=== PATIENT | female | born 1995 ===

== ENCOUNTER 2017-06-12 13:52 | Emergency (ER) | payer OTHER ==
[2017-06-12 14:17] VITALS: BP 100/56
--- NOTE | 2017-06-12 14:37 | UC ---
FLU HPI - HPI Summary HPI Summary: 22 y/.o female with 4 days history of sinus pressure, headache, sore throat. POssible fever last night, tactile, patient states up to maybe 100, no chills, night sweats. + pain with swallowing, no ear pain. no PMH, no medications currently. no recent ABX - History of Current Complaint Hx Obtained From: Patient Hx Last Menstrual Period: 05/29/17 Onset/Duration: Gradual Onset, Lasting Days, Still Present Severity Currently: Moderate Severity Initially: Moderate <Abi Stone - Last Filed: 06/12/17 14:50> <Arlen Adair - Last Filed: 06/12/17 16:11> - History of Current Complaint Chief Complaint: UCRespiratory Stated Complaint: SINUS,SORE THROAT Time Seen by Provider: 06/12/17 14:36 - Allergy/Home Medications Allergies/Adverse Reactions: Allergies Allergy/AdvReac Type Severity Reaction Status Date / Time Sulfa Antibiotics Allergy Hives Verified 06/12/17 14:17 Home Medications: Home Medications NK [No Home Medications Reported] 06/12/17 [History Confirmed 06/12/17] PMH/Surg Hx/FS Hx/Imm Hx Previously Healthy: Yes - Surgical History Surgical History: Yes Surgery Procedure, Year, and Place: T&A - Social History Alcohol Use: Rare Substance Use Type: None Smoking Status (MU): Light Every Day Tobacco Smoker Type: Cigarettes Amount Used/How Often: 5 cig per day <Abi Stone - Last Filed: 06/12/17 14:50> Review of Systems Constitutional: Fever - tactile, mild x 1, Fatigue ENT: Sore Throat, Sinus Pain/Tenderness Respiratory: Cough - minimal Cardiovascular: Negative Gastrointestinal: Negative Genitourinary: Negative Motor: Negative Neurovascular: Negative Musculoskeletal: Negative Neurological: Headache All Other Systems Reviewed And Are Negative: Yes <Abi Stone - Last Filed: 06/12/17 14:50> Physical Exam Triage Information Reviewed: Yes Appearance: Well-Appearing, No Pain Distress, Well-Nourished Vital Signs: Initial Vital Signs Temp 98.3 F 06/12/17 14:12 Pulse 70 06/12/17 14:12 Resp 14 06/12/17 14:12 BP 100/56 06/12/17 14:12 Pulse Ox 100 06/12/17 14:12 Vital Signs Reviewed: Yes Eyes: Positive: Conjunctiva Clear ENT: Positive: Pharyngeal erythema - minimal erythema, no exudates seen, no edema/ swelling/ enlargement, TM dull - + fluid levels b/l no erythema. Neck: Positive: Supple, Nontender, No Lymphadenopathy - no post- cerv LAD, no subman LAD Respiratory: Positive: Chest non-tender, Lungs clear, Normal breath sounds, No respiratory distress, No accessory muscle use Cardiovascular: Positive: RRR Abdomen Description: Positive: No Organomegaly - no splenomegaly, Soft Musculoskeletal Exam: Normal Psychological Exam: Normal Skin Exam: Normal <ZohaibVaishnavi linkica - Last Filed: 06/12/17 14:50> Vital Signs: Initial Vital Signs Temp 98.3 F 06/12/17 14:12 Pulse 70 06/12/17 14:12 Resp 14 06/12/17 14:12 BP 100/56 06/12/17 14:12 Pulse Ox 100 06/12/17 14:12 <Arlen Adair - Last Filed: 06/12/17 16:11> Flu Course/Dx - Course Course Of Treatment: URI, S/S not met for strep, patient - avoid NSAIDs, tylenol OK or discard breast milk. F/U with increasing fever, chills, increasing AYALA. - Differential Dx/Diagnosis Provider Diagnoses: upper respiratory illness <BerthaAbi - Last Filed: 06/12/17 14:50> Discharge <Abi Stone - Last Filed: 06/12/17 14:50> <Arlen Adair - Last Filed: 06/12/17 16:11> - Discharge Plan Condition: Good Disposition: HOME Patient Education Materials: Upper Respiratory Infection (ED) Referrals: Non Staff,Doctor [Medical Doctor] - Additional Instructions: - Motrin as needed, avoid breast feeding for 6 hours afterwards - rest, increase fluids - Tylenol for pain, fever Attestation Statement User Type: Provider - I was available for consult. This patient was seen by the ANGELA. The patient was not presented to, seen by, or examined by me. -Fozia <Arlen Adair - Last Filed: 06/12/17 16:11>
== END 2017-06-12 14:59 | disposition home or self-care (01) ==
LOC: UCCORT 13:52
DX: J06.9 Acute upper respiratory infection, unspecified (principal); Z88.2 Allergy status to sulfonamides; F17.210 Nicotine dependence, cigarettes, uncomplicated
CPT/HCPCS: 99201; G0463

== ENCOUNTER 2017-07-06 09:48 | Emergency (ER) | payer OTHER ==
--- NOTE | 2017-07-06 10:24 | UC ---
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- - History of Current Complaint Chief Complaint: UCGI Stated Complaint: MOUTH PAIN Time Seen by Provider: 07/06/17 10:10 Hx Obtained From: Patient Hx Last Menstrual Period: now ?: No Onset/Duration: Gradual Onset, Lasting Days, Still Present Severity: Moderate Pain Intensity: 5 Pain Scale Used: 0-10 Numeric Aggravating: Nothing Alleviating: Other (see comments) - salt water rinse and tylenol Related History: Swelling - Allergies/Home Medications Allergies/Adverse Reactions: Allergies Allergy/AdvReac Type Severity Reaction Status Date / Time Sulfa Antibiotics Allergy Hives Verified 07/06/17 10:22 PMH/Surg Hx/FS Hx/Imm Hx Previously Healthy: Yes - Surgical History Surgical History: Yes Surgery Procedure, Year, and Place: T&A - Family History Known Family History: Positive: None - Social History Occupation: Employed Part-time Lives: With Family Alcohol Use: Rare Substance Use Type: None Smoking Status (MU): Light Every Day Tobacco Smoker Type: Cigarettes Amount Used/How Often: 5 cig per day Review of Systems Constitutional: Negative Skin: Negative Eyes: Negative ENT: Dental Pain Respiratory: Negative Cardiovascular: Negative Gastrointestinal: Negative Genitourinary: Negative Motor: Negative Neurovascular: Negative Musculoskeletal: Negative Neurological: Negative Psychological: Negative All Other Systems Reviewed And Are Negative: Yes Physical Exam Triage Information Reviewed: Yes Appearance: Well-Appearing, No Pain Distress, Well-Nourished Vital Signs: Initial Vital Signs Temp 98.4 F 07/06/17 10:10 Pulse 93 07/06/17 10:10 Resp 16 07/06/17 10:10 BP 99/63 07/06/17 10:10 Pulse Ox 100 07/06/17 10:10 Vital Signs Reviewed: Yes Eye Exam: Normal Eyes: Positive: Conjunctiva Clear ENT Exam: Normal ENT: Positive: Normal ENT inspection, Hearing grossly normal, Pharynx normal, TMs normal. Negative: Nasal congestion, Nasal drainage, Tonsillar swelling, Tonsillar exudate, Trismus, Muffled/hoarse voice Dental Exam: Normal Dental: Positive: Other: - swelling lower posterior gum-posterior to last molar Neck exam: Normal Neck: Positive: Supple, Nontender, No Lymphadenopathy Respiratory Exam: Normal Respiratory: Positive: Chest non-tender, No respiratory distress, No accessory muscle use Cardiovascular Exam: Normal Cardiovascular: Positive: RRR, Pulses Normal, Brisk Capillary Refill Musculoskeletal Exam: Normal Musculoskeletal: Positive: Strength Intact, ROM Intact, No Edema Neurological Exam: Normal Neurological: Positive: Alert, Muscle Tone Normal Psychological Exam: Normal Skin Exam: Normal Dental Complaint Course/Dx - Course Course Of Treatment: chlorhexadene rinse , amoxicillin, tylenol, follow with dentist - Differential Dx/Diagnosis Differential Diagnosis/Dx: Dental Abscess, Gingivitis, Odontogenic Pain, Peridontic Disease Provider Diagnoses: abscess rightlower gum Discharge - Discharge Plan Condition: Stable Disposition: HOME Prescriptions: Amoxicillin PO (*) [Amoxicillin 500 MG CAP*] 500 mg PO TID #30 cap Chlorhexidine MOUTHWASH 0.12%* [Peridex Mouth Wash 0.12%*] 15 ml MT BID #473 ml Patient Education Materials: Dental Abscess (ED) Referrals: Loretta Boone MD [Primary Care Provider] - If Needed Additional Instructions: Follow with a dentist as well---we have provided you with a dental list to assist you finding dental care
[2017-07-06 10:29] VITALS: BP 99/63
== END 2017-07-06 10:47 | disposition home or self-care (01) ==
LOC: UCCORT 09:48
DX: K05.219 Aggressive periodontitis, localized, unspecified severity (principal); Z72.0 Tobacco use
CPT/HCPCS: 99211; G0463

== ENCOUNTER 2017-07-15 13:34 | Emergency (ER) | payer OTHER | END 2017-07-15 14:57 | disposition left against medical advice (07) | LOC: UCCORT 13:34 | DX: N64.4 Mastodynia (principal); Z53.21 Procedure and treatment not carried out due to patient leaving prior to being seen by health care provider ==

== ENCOUNTER 2017-07-15 15:49 | Emergency (ER) | payer OTHER ==
[2017-07-15 16:47] VITALS: BP 98/55
--- NOTE | 2017-07-15 16:59 | UC ---
Breast Complaint - HPI Summary HPI Summary: Left breast hot, swollen, red and tender on the upper outer aspect. - History of Current Complaint Hx Obtained From: Patient Breast Chief Complaint: Pain, Breast, Left, Inflammation Onset/Duration: Started Days Ago - 2, Worse Since - onset Timing: Constant Breast Pain Aggravating Factors: Breast Feeding Breast Pain Alleviating Factors: Breast Feeding Breast Associated Signs/Symptoms: Fever, Redness, Warmth Breast Related History: Similar Episode as: - mastitis - Additional Pertinent History Breast History: Breastfed Previously with Good Experience - Allergy/Home Medications Allergies/Adverse Reactions: Allergies Allergy/AdvReac Type Severity Reaction Status Date / Time Sulfa Antibiotics Allergy Hives Verified 07/15/17 16:42 PMH/Surg Hx/FS Hx/Imm Hx Previously Healthy: Yes - Surgical History Surgical History: Yes Surgery Procedure, Year, and Place: T&A - Family History Known Family History: Positive: Cardiac Disease, Hypertension Negative: Diabetes - Social History Occupation: Employed Full-time Lives: With Family - daughter Alcohol Use: Rare Substance Use Type: None Smoking Status (MU): Light Every Day Tobacco Smoker Type: Cigarettes Amount Used/How Often: 5 cig per day Cessation Counseling: Patient Advised to Stop Review of Systems Constitutional: Fever Is Patient Immunocompromised?: No All Other Systems Reviewed And Are Negative: Yes Physical Exam Triage Information Reviewed: Yes Appearance: Well-Appearing, Well-Nourished, Pain Distress - with any pressure on the breast. Vital Signs: Initial Vital Signs Temp 100.6 F 07/15/17 16:43 Pulse 96 07/15/17 16:43 Resp 16 07/15/17 16:43 BP 98/55 07/15/17 16:43 Pulse Ox 98 07/15/17 16:43 Vital Signs Reviewed: Yes Neck exam: Normal Respiratory Exam: Normal Cardiovascular Exam: Normal Musculoskeletal Exam: Normal Neurological Exam: Normal Psychological Exam: Normal Skin: Positive: Other - erythema, warmth and tenderness left breast upper outer quadrant Breast Pain Course/Dx - Differential Diagnoses Differential Diagnosis/HQI/PQRI: Breast Abscess, Cystic Myalgia, Mastitis - Diagnoses Provider Diagnoses: Mastitis Is Visit Related: No Discharge - Discharge Plan Condition: Stable Disposition: HOME Prescriptions: Cephalexin CAP* [Keflex 500 CAP*] 500 mg PO QID #40 cap Patient Education Materials: Mastitis (ED), Cephalexin (By mouth) Additional Instructions: Smoking Cessation Tricks. 1. Cut down by 1 cigarette per day every 2-3 days. Write the number of smokes for that day on the calendar. 2. Identify triggers to smoking: after meals, on the phone, in the car, with coffee, on breaks at work, etc. 3. Formulate a plan with a behavior to replace the smoking. Fireballs in the car , doodle pad on the phone, flavored creamer for the coffee, go for a walk after a meal or on break at work. 4. For stress smokes do deep breathing relaxation. Breath deep in through the nose hold the breath in for a few seconds then breath out slowly through the mouth.
== END 2017-07-15 17:05 | disposition home or self-care (01) ==
LOC: UCCORT 15:49
DX: N61.0 Mastitis without abscess (principal); Z88.2 Allergy status to sulfonamides; F17.210 Nicotine dependence, cigarettes, uncomplicated
CPT/HCPCS: 99212; G0463

== ENCOUNTER 2017-11-08 12:33 | Emergency (ER) | payer OTHER ==
--- NOTE | 2017-11-08 15:54 | UC ---
FLU HPI - HPI Summary HPI Summary: L ear ache and sore throat for a couple of days- - History of Current Complaint Chief Complaint: UCRespiratory Stated Complaint: EAR COMPLAINT/ST Time Seen by Provider: 11/08/17 15:38 Hx Obtained From: Patient Hx Last Menstrual Period: 06/29/17 ?: No Onset/Duration: Sudden Onset, Lasting Days - 2, Still Present Severity Currently: Mild Severity Initially: Mild Associated Signs & Symptoms: Positive: Fever, Sore Throat, Nasal Congestion, Headache - Allergy/Home Medications Allergies/Adverse Reactions: Allergies Allergy/AdvReac Type Severity Reaction Status Date / Time Sulfa Antibiotics Allergy Hives Verified 11/08/17 16:00 PMH/Surg Hx/FS Hx/Imm Hx Previously Healthy: Yes Cardiovascular History: Other Other Cardiovascular History: orthostatic hypotension - Surgical History Surgical History: Yes Surgery Procedure, Year, and Place: T&A - Family History Known Family History: Positive: Cardiac Disease, Hypertension Negative: Diabetes - Social History 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 Lives: With Family Alcohol Use: Rare Substance Use Type: None Smoking Status (MU): Light Every Day Tobacco Smoker Type: Cigarettes Amount Used/How Often: 5 cig per day - Immunization History Most Recent Influenza Vaccination: none Review of Systems Constitutional: Chills, Fatigue Skin: Negative Eyes: Negative ENT: Sore Throat, Ear Ache - left Respiratory: Negative Cardiovascular: Negative Gastrointestinal: Negative Genitourinary: Negative Motor: Negative Neurovascular: Negative Musculoskeletal: Negative Neurological: Negative Psychological: Negative Is Patient Immunocompromised?: No All Other Systems Reviewed And Are Negative: Yes Physical Exam Triage Information Reviewed: Yes Appearance: Well-Appearing, No Pain Distress, Well-Nourished Vital Signs Reviewed: Yes Eye Exam: Normal Eyes: Positive: Conjunctiva Clear ENT Exam: Normal ENT: Positive: Normal ENT inspection, Hearing grossly normal, Pharynx normal, TMs normal. Negative: Nasal congestion, Nasal drainage, TM bulging Dental Exam: Normal Neck exam: Normal Neck: Positive: Supple, Nontender, No Lymphadenopathy Respiratory Exam: Normal Respiratory: Positive: Chest non-tender, Lungs clear, Normal breath sounds, No respiratory distress, No accessory muscle use Cardiovascular Exam: Normal Cardiovascular: Positive: RRR, No Murmur, Pulses Normal, Brisk Capillary Refill Musculoskeletal Exam: Normal Musculoskeletal: Positive: Strength Intact, ROM Intact, No Edema Neurological Exam: Normal Neurological: Positive: Alert, Muscle Tone Normal Psychological Exam: Normal Skin Exam: Normal Diagnostics - Laboratory Diagnostic Studies Completed/Ordered: RST and Influenza A/B (-) Flu Course/Dx - Course Course Of Treatment: rest increase fluids, tylenol/ibuprofen for pain follow with pcp - Differential Dx/Diagnosis Provider Diagnoses: Pharyngitis, viral illness Discharge - Discharge Plan Condition: Stable Disposition: HOME Patient Education Materials: Pharyngitis (ED), Viral Syndrome (ED) Forms: *Work Release Referrals: [facility] [place] [facility]FERR[facility] [Outside] - If Needed
[2017-11-08 16:00] VITALS: BP 102/58
== END 2017-11-08 16:27 | disposition home or self-care (01) ==
LOC: UCCORT 12:33
DX: J02.9 Acute pharyngitis, unspecified (principal); B34.9 Viral infection, unspecified; H92.02 Otalgia, left ear; F17.210 Nicotine dependence, cigarettes, uncomplicated; Z88.2 Allergy status to sulfonamides
CPT/HCPCS: 87502; 87651; 99211; G0463